=== PATIENT | male | born 1955 | race Caucasian/White ===

== ENCOUNTER → 2017-12-31 16:00 | Outpatient (CLI) | payer SELFPAY | DX: Z23 Encounter for immunization (principal) | CPT/HCPCS: 90471; 90686 ==

== ENCOUNTER → 2019-01-08 17:03 | Outpatient (CLI) | payer OTHER, SELFPAY | DX: Z23 Encounter for immunization (principal) | CPT/HCPCS: 90471; 90686 ==

== ENCOUNTER → 2019-11-10 14:30 | Outpatient (CLI) | payer OTHER, SELFPAY ==
[2019-11-10 15:23] LABS: Add Manual Diff / Slide Review NO; Basophils Absolute Auto 0 /uL (0-100); Basophils Percent Auto 0.3 % (0-2); Eosinophils Absolute Auto 100 /uL (0-450); Eosinophils Percent Auto 0.9 % (2-4); Hematocrit 36.7 % (41-53); Hemoglobin 11.9 g/dL (13.5-17.5); Lymphocytes Absolute Auto 1600 /uL (1100-4500); Mean Corpuscular HGB Conc 32.4 % (30-36); Mean Corpuscular Hemoglobin 23.5 PG (26-34); Mean Corpuscular Volume 72.3 fL (80-100); Monocytes Absolute Auto 900 /uL (0-900); Monocytes Percent Auto 9.5 % (3-14); Neutrophils Absolute Auto 6500 /uL (1500-7000); Neutrophils Percent Auto 71.3 % (50-75); Platelet Count 189 X10^3/uL (150-400); Red Blood Cell Count 5.07 X10^6/uL (4.5-5.9); Red Cell Distribution Width 17.2 % (11.6-14.8); White Blood Cell Count 9.1 X10^3/uL (4.5-11.0)
[2019-11-10 15:31] LABS: Hemoglobin A1C% w Est Avg Glu 6.1 % (4.0-6.0)
[2019-11-10 15:37] LABS: Alanine Aminotransferase 19 IU/L (<50); Albumin 4.3 g/dL (3.5-5.0); Albumin Globulin Ratio 1.5 (1.0-2.8); Alkaline Phosphatase 79 U/L (38-126); Aspartate Aminotransferase 35 IU/L (17-59); BUN Creatinine Ratio 20.8 (6-22); Bilirubin Total 0.3 mg/dL (0.2-1.3); Blood Urea Nitrogen 20 mg/dL (9-20); Calcium 9.1 mg/dL (8.4-10.2); Carbon Dioxide 29 mmol/L (22-32); Chloride 103 mmol/L (98-107); Cholesterol 169 mg/dL (140-199); Estimated Glomerular Filt Rate > 60.0 mL/min (>60); Globulin 2.8 g/dL (1.7-4.1); Glucose 97 mg/dL (80-110); HDL Cholesterol 46 mg/dL (40-60); HEMOLYSIS < 15 (0-50); LDL Cholesterol Calculated 89 mg/dL (<100); Potassium 4.3 mmol/L (3.4-5.1); Sodium 139 mmol/L (137-145); Total Protein 7.1 g/dL (6.3-8.2); Triglycerides 169 mg/dL (35-150)
[2019-11-10 16:06] LABS: Prostate Specific Antigen 0.791 ng/mL (0.10-4.00)
[2019-11-10 16:07] LABS: Thyroid Stimulating Hormone 0.623 uIU/mL (0.47-4.68)
[2019-11-10 16:24] LABS: Vitamin B12 Reflex MMA if <400 351 pg/mL (239-931)
[2019-11-13 10:08] LABS: Methylmalonic Acid,Serum 238 nmol/L (0-378)
== END ==
PROVIDERS: PCP Family Medicine; Referring Provider Family Medicine; Visit Provider Family Medicine
DX: I10 Essential (primary) hypertension (principal); N40.0 Benign prostatic hyperplasia without lower urinary tract symptoms; R12 Heartburn
CPT/HCPCS: 36415; 80053; 80061; 82607; 83036; 83921; 84153; 84443; 85025

== ENCOUNTER → 2019-11-27 10:31 | Outpatient (CLI) | payer OTHER, SELFPAY ==
--- NOTE | 2019-11-27 10:34 | DI.RAD.S_ITS ---
PROCEDURE: XR WRIST LT MIN 3V INDICATIONS: pain TECHNIQUE: 4 views of the wrist were acquired. COMPARISON: None. FINDINGS: Bones: There is an irregular, likely chronic fracture of the scaphoid. Degenerative changes are seen involving the scaphoid and the scapholunate interface, with bony fragmentation. Milder degenerative changes are seen elsewhere. Soft tissues: No suspicious soft tissue calcifications. IMPRESSION: Irregular fracture seen of the scaphoid, which is believed to be chronic. If clinically appropriate, please consider a follow-up wrist CT or MRI for further evaluation (assuming that there is no contraindication). If there is strong clinical concern for a ligamentous abnormality, this should be performed according to the MR arthrogram protocol. Dictated by: Aleksandar Marie M.D. on 11/27/2019 at 14:17 Approved by: Aleksandar Marie M.D. on 11/27/2019 at 14:18
== END ==
PROVIDERS: PCP Family Medicine; Referring Provider Family Medicine; Visit Provider Family Medicine
DX: M25.532 Pain in left wrist (principal)
CPT/HCPCS: 73110

== ENCOUNTER → 2019-12-31 13:51 | Outpatient (CLI) | payer OTHER, SELFPAY | PROVIDERS: PCP Family Medicine; Referring Provider Internal Medicine; Visit Provider Internal Medicine | DX: Z23 Encounter for immunization (principal) | CPT/HCPCS: 90471; 90662 ==

== ENCOUNTER → 2020-04-07 09:56 | Outpatient (CLI) | payer OTHER, SELFPAY ==
[2020-04-07 11:17] LABS: COVID19 -Nasal RAPID Negative (Negative)
== END ==
PROVIDERS: PCP Family Medicine; Visit Provider Surgery
DX: Z20.822 Contact with and (suspected) exposure to COVID-19 (principal); Z01.812 Encounter for preprocedural laboratory examination
CPT/HCPCS: 87635; C9803

== ENCOUNTER → 2020-04-07 10:01 | Outpatient (CLI) | payer OTHER, SELFPAY ==
[2020-04-07] MEDS: COVID-19 VACC(MODERNA-1)/PF 100 MCG/0.5 ML VIAL IM (10:08)
== END ==
PROVIDERS: PCP Family Medicine; Visit Provider Internal Medicine
DX: Z23 Encounter for immunization (principal)
CPT/HCPCS: 0011A; 91301

== ENCOUNTER 2020-04-08 08:17 | Day surgery (SDC) | payer OTHER, SELFPAY ==
--- NOTE | 2020-04-08 | PATH_ITS ---
[facility] Accession Number: [id number] . 01 Material submitted: . rectum - RECTAL POLYP BIOPSY . 02 Diagnosis: Rectum, Polyp, Biopsy: Hyperplastic polyp. MRV 04/13/2020 1307 Local . 02 Electronically signed: . Jennifer Arcos MD, Pathologist NPI- [id number] . 01 Gross description: . RECTAL POLYP BIOPSY: Received in formalin are 2 fragment(s) of dumont, soft tissue measuring 0.2 x 0.2 x 0.2 cm in aggregate submitted entirely in 1 cassette(s) /MOLLY 04/11/2020 1901 Local . 02 Pathologist provided ICD-10: K62.1 . 02 CPT . 319690 Performed at: 01 [facility] [address] [id number] MD Camden Arambula MD Phone: [phone] Performed at: 02 [facility] [place] [address] [place], [place] [id number] MD Jennifer Arcos MD Phone: [phone]
[2020-04-08] MEDS: SODIUM CHLORIDE 0.9% 1,000 ML 84 ML IV (08:32)
[2020-04-08 08:46] VITALS: BP 157/77; PULSE 58; RESP 15; TEMP 36.6; O2SAT 99; BMI 29.2
--- NOTE | 2020-04-08 09:38 | P.HP_ITS ---
History of Present Illness History of Present Illness Date Patient Seen: 04/08/20 Time Patient Seen: 09:38 [place] [facility] [place] This is a 64-year-old man with a personal history of colon polyps. His last colonoscopy was in 2013. I do not have the colonoscopy report, but per the patient polyps were found and he was told to have a repeat colonoscopy in 5 years. He denies any symptoms of melena or hematochezia. He does have some abdominal cramping from time to time for over the past 6 months. He has no unexplained weight loss. He denies constipation or diarrhea. ROS: Positive for arthritis, GERD controlled on PPI, urinary frequency/urgency, denies nausea, positive for eczema. Thirteen system review is otherwise negative other than as mentioned below and in HPI. PE: GENERAL: Well groomed and cooperative. Appears stated age. Answers questions promptly and appropriately. Vital signs noted. HENT: Normocephalic, atraumatic. Hearing intact. EYES: Conjunctiva pink, sclera white, no periorbital swelling. CARDIOVASCULAR: Regular rate. No pedal edema. RESPIRATORY: Non-tachypneic, breathing comfortably on room air. GASTROINTESTINAL: Abdomen soft and non-distended GENITALURINARY: No flank tenderness. MUSCULOSKELETAL: Equal tone and mass bilaterally. SKIN: Warm, dry, soft, appropriate color for ethnicity. No other lesions, rashes, or wounds. NEURO: Alert and Oriented X 3. No gross sensory deficits, or cognitive issues. PSYCH: Appropriate affect and mood. Patient History Medical History Acute pain of left wrist Ankle pain (~2017) BPH (benign prostatic hyperplasia) Chicken pox Colon polyps (~2011) Eczema (~2014) Finger pain, left Foot pain (~2009) Fractures Genital warts (~1973) Hearing loss (~2011) Heartburn (~1999) Hemorrhoid (~2015) History of anemia Hypertension (~2013) Measles Mumps Nail fungus (~2011) Paronychia of finger of left hand Scaphoid fracture Skin cancer (~1984) Upper extremity somatic dysfunction Wears glasses Surgical History Anesthesia H/O right knee surgery (~2004) History of broken collarbone (~1956) History of broken finger (~1972) History of colonoscopy (~2014) History of esophageal disorder (~2012) History of tonsillectomy (~1959) Family & Social History Family History Father Cancer Mother History of heart disease Hypertension Sister History of heart disease Sister Diabetes mellitus Grandmother Diabetes mellitus Social History: household members spouse Tobacco & Substance use: Smoking Status Former smoker alcohol intake current alcohol intake frequency a few times a week Substance Use Type does not use Meds Home Medications and Allergies Home Medications Medication Instructions Recorded Confirmed Type multivitamin 1 tab PO DAILY 11/10/19 04/08/20 History omeprazole 20 mg tablet,delayed 20 mg PO DAILY 11/10/19 04/08/20 History release Allergies Allergy/AdvReac Type Severity Reaction Status Date / Time shellfish derived Allergy Intermediate Rash Verified 04/08/20 08:34 mollusks AdvReac Intermediate Nausea Verified 04/08/20 08:34 Exam Vital Signs (past 8 hours): - 04/08/20 08:46 Temperature 97.8 F Pulse Rate 58 L Respiratory Rate 15 Blood Pressure 157/77 H Pulse Oximetry 99 Oxygen Delivery Method Room Air Assessment & Plan Assessment and plan (1) Personal history of colonic polyps: Status: Acute (2) Abdominal pain: Status: Acute (3) Hemorrhoid: Status: Chronic (4) Hypertension: Status: Chronic (5) History of anemia: Status: Acute Assessment & Plan narrative: 17 minutes were spent reviewing the patient's primary care records, and 8 minutes were spent [id number] with the patient discussing his medical history, prior colonoscopies, current symptoms, and exam findings. Risks and benefits of screening colonoscopy and possible polypectomy were discussed with the patient including risk of bleeding, perforation, need for additional procedures, risks of anesthesia. The patient desires to proceed with the colonoscopy procedure. COVID-19 COVID-19 status: Negative Result date/Date tested (Pos, Neg/Pending): 04/07/20 Time Spent With Patient Time with patient: 25 - 35 minutes
--- NOTE | 2020-04-08 09:43 | PM.OP.ENDO ---
Operative Date/Time/Diagnoses Date of procedure: 04/08/20 Time of procedure: 09:43 Pre-op diagnosis: Personal history of colon polyps, unexplained abdominal pain Post-op diagnosis: other (Single polyp at 15 cm, external hemorrhoid remnant tags) Procedure & Clinicians Study performed: Colonoscopy Procedural sedation performed by the endoscopist Polypectomy with number forceps at 15 cm Same procedure as scheduled: Yes Indications: Personal history of colon polyps, due for surveillance colonoscopy, unexplained abdominal pain Surgeon: Monica Carballo Procedure Notes SCOAP/Timeout: Performed Procedure in detail: The patient was brought to the room and placed in left lateral decubitus position with all bony prominences padded. A time-out was performed and then the patient was given procedural sedation starting with 4 mg of Versed and 100 mcg of fentanyl. Total of 6 mg of Versed and 100 micro g of fentanyl were given for the entire procedure. Vitals were monitored throughout the procedure and remained stable. Once adequately sedated, the procedure was begun. A rectal exam was performed revealing external hemorrhoid remnant tags, and small internal hemorrhoids. The colonoscope was then introduced to the rectum and advanced to the cecum in the usual fashion. The cecum was identified by the appendiceal orifice, the mucosal tri-fold, and the ileocecal valve. The scope was then retracted while rotating side to side and examining each mucosal fold. A 3 mm polyp was seen at 15 cm in the rectum, and it was removed with Jumbo forceps. At the conclusion of the procedure retroflexion was performed and moderate grade to internal hemorrhoids without stigmata of bleeding were seen. A skin tags from his external hemorrhoids was seen on retroflexion as well. It appeared consistent with a remote skin tag. It was not thrombosed or actively bleeding. The scope was then withdrawn from the rectum the procedure was concluded. The patient tolerated the procedure well and was transferred to the PACU in stable condition. Scope withdrawal time: 09 Sedation minutes: 22 Findings: internal hemorrhoids and polyp Specimen(s): other (Single small polyp) Complications: none Impression: Single benign appearing polyp Post-procedure Recommendations: Colonscopy in 5 years (Due to history of colon polyps, and new polyps seen on this exam) Follow up: as needed Disposition: PACU
[2020-04-08] MEDS: MIDAZOLAM 5 MG/5 ML VIAL IV (09:57)
[2020-04-08] MEDS: fentaNYL 250 MCG/5 ML INJ IV (09:59)
[2020-04-08 10:10] VITALS: BP 112/59; BP 113/59; PULSE 51; PULSE 56; RESP 12; RESP 13; TEMP 36.4; O2SAT 95
[2020-04-08 10:15] VITALS: BP 113/59; PULSE 52; RESP 12; O2SAT 95
[2020-04-08 10:25] VITALS: BP 129/65; PULSE 60; RESP 17; O2SAT 96
[2020-04-08 10:34] VITALS: BP 120/67; PULSE 59; RESP 18; TEMP 36.7; O2SAT 95
--- NOTE | 2020-04-08 10:44 | SUR.PHASEII ---
PT DISCHARGED WITH ALL BELONGINGS
== END 2020-04-08 10:44 | disposition home or self-care (01) ==
PROVIDERS: PCP Family Medicine; Referring Provider Family Medicine; Visit Provider Surgery
PROC: 0DJD8ZZ Inspection of Lower Intestinal Tract, Via Natural or Artificial Opening Endoscopic (ICD-10-PCS; CPT 45378; principal; 2020-04-08 09:15)
DX: R10.9 Unspecified abdominal pain (principal); K64.4 Residual hemorrhoidal skin tags; K64.8 Other hemorrhoids; I10 Essential (primary) hypertension; K62.1 Rectal polyp
CPT/HCPCS: 45380; 99152; J2250; J3010

== ENCOUNTER → 2020-05-06 09:45 | Outpatient (CLI) | payer OTHER, SELFPAY ==
[2020-05-06] MEDS: COVID-19 VACC #2, MRNA(MOD) 100 MCG/0.5 ML VIAL IM (09:47)
== END ==
PROVIDERS: PCP Family Medicine; Visit Provider Internal Medicine
DX: Z23 Encounter for immunization (principal)
CPT/HCPCS: 0012A; 91301

== ENCOUNTER → 2020-12-30 10:12 | Outpatient (CLI) | payer OTHER, SELFPAY ==
[2020-12-30 12:20] LABS: COVID19 -Nasal RAPID Negative (Negative)
== END ==
PROVIDERS: PCP Family Medicine; Visit Provider Physician Assistant
DX: Z20.822 Contact with and (suspected) exposure to COVID-19 (principal)
CPT/HCPCS: 87635

== ENCOUNTER → 2021-01-03 09:52 | Outpatient (CLI) | payer OTHER, SELFPAY ==
[2021-01-03 12:21] LABS: COVID19 -Nasal RAPID Negative (Negative)
== END ==
PROVIDERS: PCP Family Medicine; Visit Provider Nurse Practitioner Family
DX: Z20.822 Contact with and (suspected) exposure to COVID-19 (principal)
CPT/HCPCS: 87635

== ENCOUNTER → 2021-01-05 10:00 | Outpatient (CLI) | payer OTHER, SELFPAY | PROVIDERS: PCP Family Medicine; Referring Provider Internal Medicine; Visit Provider Internal Medicine | DX: Z23 Encounter for immunization (principal) | CPT/HCPCS: 90471; 90662 ==

== ENCOUNTER → 2021-01-09 11:41 | Outpatient (CLI) | payer OTHER, SELFPAY ==
[2021-01-09 13:33] LABS: COVID19 -Nasal RAPID Negative (Negative)
== END ==
PROVIDERS: PCP Family Medicine; Visit Provider Nurse Practitioner Family
DX: Z20.822 Contact with and (suspected) exposure to COVID-19 (principal)
CPT/HCPCS: 87635

== ENCOUNTER → 2021-06-30 07:23 | Outpatient (CLI) | payer OTHER, SELFPAY ==
[2021-06-30 07:45] LABS: Add Manual Diff / Slide Review NO; Basophils Absolute Auto 0 /uL (0-100); Basophils Percent Auto 0.6 % (0-2); Eosinophils Absolute Auto 200 /uL (0-450); Eosinophils Percent Auto 2.5 % (2-4); Hematocrit 40.6 % (41-53); Hemoglobin 13.8 g/dL (13.5-17.5); Lymphocytes Absolute Auto 1400 /uL (1100-4500); Lymphocytes Percent Auto 18.2 % (25-40); Mean Corpuscular HGB Conc 33.9 % (30-36); Mean Corpuscular Hemoglobin 28.1 PG (26-34); Monocytes Absolute Auto 700 /uL (0-900); Monocytes Percent Auto 9.2 % (3-14); Neutrophils Absolute Auto 5500 /uL (1500-7000); Neutrophils Percent Auto 69.5 % (50-75); Platelet Count 177 X10^3/uL (150-400); Red Blood Cell Count 4.89 X10^6/uL (4.5-5.9); Red Cell Distribution Width 15.3 % (11.6-14.8); White Blood Cell Count 7.9 X10^3/uL (4.5-11.0)
[2021-06-30 07:59] LABS: Alanine Aminotransferase 19 IU/L (<50); Albumin 4.2 g/dL (3.5-5.0); Albumin Globulin Ratio 1.4 (1.0-2.8); Alkaline Phosphatase 61 U/L (38-126); Aspartate Aminotransferase 27 IU/L (17-59); BUN Creatinine Ratio 11.7 (6-22); Bilirubin Total 0.6 mg/dL (0.2-1.3); Blood Urea Nitrogen 12 mg/dL (9-20); Calcium 8.7 mg/dL (8.4-10.2); Carbon Dioxide 30 mmol/L (22-32); Chloride 104 mmol/L (98-107); Cholesterol 172 mg/dL (140-199); Estimated Glomerular Filt Rate > 60.0 mL/min (>60); Globulin 2.9 g/dL (1.7-4.1); Glucose 106 mg/dL (80-110); HDL Cholesterol 43 mg/dL (40-60); HEMOLYSIS < 15 (0-50); LDL Cholesterol Calculated 99 mg/dL (<100); Potassium 4.1 mmol/L (3.4-5.1); Sodium 140 mmol/L (137-145); Total Protein 7.1 g/dL (6.3-8.2); Triglycerides 150 mg/dL (35-150)
[2021-06-30 08:29] LABS: Prostate Specific Antigen 0.705 ng/mL (0.10-4.00)
[2021-06-30 08:36] LABS: TSH w/ Reflex to FT4 0.97 uIU/mL (0.47-4.68)
== END ==
PROVIDERS: PCP Family Medicine; Referring Provider Family Medicine; Visit Provider Family Medicine
DX: I10 Essential (primary) hypertension (principal); Z00.00 Encounter for general adult medical examination without abnormal findings
CPT/HCPCS: 36415; 80053; 80061; 84153; 84443; 85025

== ENCOUNTER → 2022-01-05 16:51 | Outpatient (CLI) | payer OTHER, SELFPAY | PROVIDERS: PCP Family Medicine; Referring Provider Internal Medicine; Visit Provider Internal Medicine | DX: Z23 Encounter for immunization (principal) | CPT/HCPCS: 90471; 90662 ==

== ENCOUNTER → 2022-07-18 07:20 | Outpatient (CLI) | payer OTHER, SELFPAY ==
[2022-07-18 08:26] LABS: Alanine Aminotransferase 21 IU/L (<50); Albumin Globulin Ratio 1.4 (1.0-2.8); Alkaline Phosphatase 61 U/L (38-126); Aspartate Aminotransferase 28 IU/L (17-59); BUN Creatinine Ratio 11.5 (6-22); Bilirubin Total 0.4 mg/dL (0.2-1.3); Blood Urea Nitrogen 12 mg/dL (9-20); Calcium 8.7 mg/dL (8.4-10.2); Carbon Dioxide 29 mmol/L (22-32); Chloride 103 mmol/L (98-107); Estimated Glomerular Filt Rate > 60 mL/min (>60); Globulin 2.9 g/dL (1.7-4.1); Glucose 99 mg/dL (80-110); HEMOLYSIS < 15 (0-50); Potassium 4.4 mmol/L (3.4-5.1); Sodium 138 mmol/L (137-145); Total Protein 6.9 g/dL (6.3-8.2)
== END ==
PROVIDERS: PCP Family Medicine; Referring Provider Family Medicine; Visit Provider Family Medicine
DX: I10 Essential (primary) hypertension (principal)
CPT/HCPCS: 36415; 80053

== ENCOUNTER 2023-07-29 12:18 | Day surgery (SDC) | payer OTHER, SELFPAY ==
[2023-06-11 13:46] VITALS: BMI 29.2
[2023-07-29 12:36] VITALS: BP 153/65; PULSE 64; RESP 16; TEMP 36.2; O2SAT 97; BMI 29.2
--- NOTE | 2023-07-29 12:45 | PM.HP.1 ---
History of Present Illness History of Present Illness Date Patient Seen: 07/29/23 Time Patient Seen: 12:45 Chief complaint: Hernia Repair - Umbilical Narrative: Abdulaziz is a 67-year-old man with a symptomatic umbilical hernia. See office note from May for more details. [facility] Medical History (Updated 07/23/23 @ 14:49 by Alessandra Brandt RN) History of COVID-19 (06/13/23) Anemia Umbilical hernia GERD (gastroesophageal reflux disease) Onychomycosis Well adult exam Sensorineural hearing loss (SNHL) of both ears Scaphoid fracture Upper extremity somatic dysfunction Paronychia of finger of left hand Finger pain, left Acute pain of left wrist History of anemia BPH (benign prostatic hyperplasia) Wears glasses Nail fungus (~2011) Eczema (~2014) Fractures Foot pain (~2009) Ankle pain (~2017) Mumps Measles Chicken pox Hearing loss (~2011) Genital warts (~1973) Heartburn (~1999) Hemorrhoid (~2015) Colon polyps (~2011) Hypertension (~2013) Skin cancer (~1984) Surgical History (Updated 06/11/23 @ 13:50 by Alessandra Brandt RN) Hx of tonsillectomy (1959) Hx of hand surgery (1969) History of hernia repair (1958) History of esophageal disorder (~2012) Anesthesia History of colonoscopy (~2014) History of tonsillectomy (~1959) History of broken collarbone (~1956) History of broken finger (~1972) H/O right knee surgery (~2004) Family History Father Cancer Mother History of heart disease Hypertension Sister History of heart disease Sister Diabetes mellitus Grandmother Diabetes mellitus Social History household members: spouse Smoking Status: Former smoker Tobacco: How many years used: 10 quit status: has quit before alcohol intake: current substance use type: does not use Meds Home Medications and Allergies Home Medications Medication Instructions Recorded Confirmed Type multivitamin 1 tab PO DAILY 11/10/19 06/11/23 History lisinopril 10 mg tablet 10 mg PO BID #180 tabs 04/19/23 06/11/23 Rx methylcellulose (laxative) 500 mg 500 mg PO DAILY Regularity 04/19/23 06/11/23 History tablet (Citrucel) omeprazole 20 mg tablet,delayed 20 mg PO DAILY #90 tabs 04/19/23 06/11/23 Rx release Allergies Allergy/AdvReac Type Severity Reaction Status Date / Time shellfish derived Allergy Intermediate Rash Verified 05/08/23 12:57 mollusks AdvReac Intermediate Nausea Verified 05/08/23 12:57 Exam Const General: No acute distress Resp Effort & Inspection: normal respiratory effort GI Other: Umbilical hernia Assessment & Plan Assessment and plan (1) Umbilical hernia: Qualifiers: Obstruction and gangrene presence: without obstruction or gangrene Qualified Code(s): K42.9 - Umbilical hernia without obstruction or gangrene Status: Acute Plan We reviewed the risks and benefits of open umbilical hernia repair with mesh and he would like to proceed.
[2023-07-29] MEDS: LACTATED RINGERS 1,000 ML 42 ML IV (12:50)
[2023-07-29] MEDS: CEFAZOLIN 2 GM/100 ML PREMIX 100 ML IV (13:19)
--- NOTE | 2023-07-29 13:26 | SUR.OPER ---
Supine on padded OR bed, head on pillow, arms secured on padded arm boards at <90 degrees abduction, legs uncrossed, safety belt at thigh, tape over blanket over lower legs.
[2023-07-29] MEDS: ACETAMINOPHEN IV 1,000 MG/100 ML VIAL 400 MG IV (13:29)
[2023-07-29] MEDS: BUPIVACAINE 0.5% W/ EPI (PF) 30 ML VIAL INJ (13:31)
--- NOTE | 2023-07-29 14:19 | PM.OP.1 ---
Operative Date/Time/Diagnoses Date of procedure: 07/29/23 Time of procedure: 14:19 Pre-op diagnosis: Umbilical hernia Post-op diagnosis: same Procedure & Clinicians Procedure: Open umbilical hernia repair with mesh Same procedure as scheduled: Yes Surgeon: Mian Lomax Environmental Geologist: Bala Flowers Anesthesia Type: General Operative Notes Procedure in detail: Ancef was administered. The patient was brought to the operating room, placed on the table in the supine position and general endotracheal anesthesia was induced. The abdomen was prepped and draped in the usual fashion. A time-out was performed. A 6 cm curvilinear incision was made inferior to the umbilicus. The hernia sac was dissected free from the surrounding subcutaneous adipose tissue. The sac was dissected off the umbilical stalk using a combination of cautery, sharp and blunt dissection. The hernia sac was opened and viable bowel was seen freely mobile in the abdomen. No adhesions were noted. The peritoneal defect was then sutured closed with a running 3-0 Vicryl stitch. The hernia sac was dissected free from the fascial ring and allowed to drop back down into the abdomen. The fascia was then closed transversely with multiple interrupted 0 Ethibond sutures. The subcutaneous adipose tissue was cleared off of the anterior sheath circumferentially about 2 cm in each direction. A piece of polypropylene mesh was trimmed to fit over the fascial closure and secured with Tisseel. Once the Tisseel was dried the umbilical skin was tacked down to the deep tissue with a single 3-0 Vicryl stitch. The skin was closed with multiple interrupted 3-0 Vicryl dermal sutures followed by a running 4 Monocryl subcuticular closure. Steri-Strips were applied and an abdominal binder was applied. EBL: 5 mL Bala AGARWAL provided assistance with exposure, retraction and closure of incisions. Post-operative Condition: stable Disposition: PACU
[2023-07-29 14:24] VITALS: BP 148/62; PULSE 77; RESP 16; TEMP 36.6; O2SAT 94
[2023-07-29 14:29] VITALS: BP 145/62; PULSE 73; RESP 16; O2SAT 97
[2023-07-29 14:34] VITALS: BP 154/70; PULSE 66; RESP 14; TEMP 36.6; O2SAT 99
[2023-07-29 14:38] VITALS: BP 148/76; PULSE 66; RESP 14; O2SAT 96
== END 2023-07-29 14:57 | disposition home or self-care (01) ==
PROVIDERS: PCP Family Medicine; Referring Provider Surgery; Visit Provider Surgery
PROC: (CPT 49591; principal; 2023-07-29 13:45)
DX: K42.9 Umbilical hernia without obstruction or gangrene (principal)
CPT/HCPCS: 49591; C1781; J0136; J0690; J2704; J3010

== ENCOUNTER → 2023-10-30 07:08 | Outpatient (CLI) | payer OTHER, SELFPAY ==
[2023-10-30 07:58] LABS: Basophils Absolute Auto 100 /uL (0-100); Basophils Percent Auto 0.9 % (0-2); Eosinophils Absolute Auto 100 /uL (0-450); Hematocrit 33.6 % (41-53); Hemoglobin 10.8 g/dL (13.5-17.5); Lymphocytes Absolute Auto 1600 /uL (1100-4500); Lymphocytes Percent Auto 24.1 % (25-40); Mean Corpuscular Hemoglobin 21.9 PG (26-34); Mean Corpuscular Volume 68.5 fL (80-100); Monocytes Absolute Auto 800 /uL (0-900); Monocytes Percent Auto 11.7 % (3-14); Neutrophils Absolute Auto 4100 /uL (1500-7000); Neutrophils Percent Auto 61.3 % (50-75); Platelet Count 200 X10^3/uL (150-400); Red Blood Cell Count 4.91 X10^6/uL (4.5-5.9); Red Cell Distribution Width 17.4 % (11.6-14.8); White Blood Cell Count 6.7 X10^3/uL (4.5-11.0)
[2023-10-30 08:20] LABS: Add Manual Diff / Slide Review SLIDE REVIEW
[2023-10-30 08:34] LABS: Alanine Aminotransferase 18 IU/L (<50); Albumin 4.1 g/dL (3.5-5.0); Albumin Globulin Ratio 1.4 (1.0-2.8); Alkaline Phosphatase 64 U/L (38-126); Aspartate Aminotransferase 28 IU/L (17-59); Bilirubin Total 0.5 mg/dL (0.2-1.3); Blood Urea Nitrogen 15 mg/dL (9-20); Calcium 8.6 mg/dL (8.4-10.2); Carbon Dioxide 27 mmol/L (22-32); Chloride 106 mmol/L (98-107); Cholesterol 170 mg/dL (140-199); Estimated Glomerular Filt Rate > 60 mL/min (>60); Globulin 2.9 g/dL (1.7-4.1); Glucose 103 mg/dL (80-110); HDL Cholesterol 43 mg/dL (40-60); HEMOLYSIS < 15 (0-50); LDL Cholesterol Calculated 100 mg/dL (<100); Potassium 4.6 mmol/L (3.4-5.1); Sodium 137 mmol/L (137-145); Triglycerides 137 mg/dL (35-150)
[2023-10-30 08:56] LABS: Microcytosis 1+
== END ==
PROVIDERS: PCP Family Medicine; Referring Provider Family Medicine; Visit Provider Family Medicine
DX: I10 Essential (primary) hypertension (principal); Z86.2 Personal history of diseases of the blood and blood-forming organs and certain disorders involving the immune mechanism
CPT/HCPCS: 36415; 80053; 80061; 85025

== ENCOUNTER 2024-01-07 08:27 | Day surgery (SDC) | payer OTHER, SELFPAY ==
[2024-01-07] MEDS: ACETAMINOPHEN 325 MG TABLET 975 MG PO (08:52)
[2024-01-07 08:53] VITALS: BMI 29.0
[2024-01-07 09:09] VITALS: BP 161/80; PULSE 56; RESP 14; TEMP 36.2; O2SAT 99
[2024-01-07] MEDS: LACTATED RINGERS 1,000 ML 42 ML IV (09:10)
[2024-01-07] MEDS: CEFAZOLIN 2 GM/100 ML PREMIX 100 ML IV (09:40)
--- NOTE | 2024-01-07 09:53 | SUR.OPER ---
Supine on padded OR bed, head on pillow, arms secured on padded arm boards at <90 degrees abduction, legs uncrossed, safety belt at thigh, tape over blanket over lower legs.
[2024-01-07] MEDS: BUPIVACAINE 0.5% (PF) 30 ML, EPINEPHrine 0.15 MG INJ (10:08)
--- NOTE | 2024-01-07 11:21 | P.OP_ITS ---
Operative Date/Time/Diagnoses Date of procedure: 01/07/24 Time of procedure: 11:21 Pre-op diagnosis: Recurrent umbilical hernia Post-op diagnosis: same Procedure & Clinicians Procedure: Open recurrent umbilical hernia repair with mesh Same procedure as scheduled: Yes Surgeon: Mian Lomax Chief Ii Dispatcher: Bala Flowers Anesthesia Type: General Operative Notes Procedure in detail: Ancef was administered. The patient was brought to the operating room, placed on the table in the supine position and general endotracheal anesthesia was induced. The abdomen was prepped and draped in the usual fashion. A time-out was performed. A 6 cm curvilinear incision was made inferior to the umbilicus through the old scar. We dissected down through the old scar tissue and found the edge of the mesh. The recurrent hernia sac appeared to be coming from the left side of the wound around the edge of the mesh. Further dissection revealed that 1 of the left lateral Ethibond sutures seemed to have come untied. We continued to dissect around the mesh and around the fascial defect. The fascial defect was a proximally 2 cm across. We removed the majority of the old mesh. Some of the inferior portion of the mesh was left intact because it was quite adherent to the fascia. We resected the hernia sac. We then closed the fascia transversely with about 10 interrupted 0 Ethibond sutures. Dissected some of the subcutaneous adipose tissue and fibrotic tissue off of the anterior sheath to allow a landing zone for a new piece of mesh. A piece of polypropylene mesh was trimmed to fit over the fascial closure and secured with Tisseel. Once the Tisseel was dried the umbilical skin was tacked down to the deep adipose tissue with two 3-0 Vicryl stitches. The skin was closed with multiple interrupted 3-0 Vicryl dermal sutures followed by a running 4 Monocryl subcuticular closure. Steri-Strips were applied and an abdominal binder was applied. EBL: 10 mL Bala AGARWAL provided assistance with exposure, retraction and closure of incisions. Post-operative Disposition: PACU
--- NOTE | 2024-01-07 11:21 | PM.PREOP ---
Pre-operative Note COVID-19 COVID-19 status: Not tested Interval Note History & Physical reviewed/Exam performed by Physician: Yes Changes to H&P: No ASA Class (for procedural sedation): II
[2024-01-07 11:22] VITALS: BP 145/72; PULSE 61; RESP 18; TEMP 37.1; O2SAT 91
[2024-01-07 11:27] VITALS: BP 143/67; PULSE 54; RESP 18; O2SAT 95
[2024-01-07 11:31] VITALS: BP 145/72; PULSE 61; RESP 16; O2SAT 93
[2024-01-07 11:37] VITALS: BP 149/63; PULSE 58; RESP 13; O2SAT 93
[2024-01-07 11:40] VITALS: BP 147/64; PULSE 57; RESP 18; TEMP 36.6; O2SAT 93
== END 2024-01-07 12:10 | disposition home or self-care (01) ==
PROVIDERS: PCP Family Medicine; Referring Provider Surgery; Visit Provider Surgery
PROC: (CPT 49613; principal; 2024-01-07 09:45)
DX: K42.9 Umbilical hernia without obstruction or gangrene (principal)
CPT/HCPCS: 49613; 49623; J0171; J0330; J0690; J1100; J2405; J2704; J3010

== ENCOUNTER → 2024-01-17 | Outpatient (CLI) | payer OTHER, SELFPAY | PROVIDERS: PCP Family Medicine; Referring Provider Internal Medicine; Visit Provider Internal Medicine | DX: Z23 Encounter for immunization (principal) | CPT/HCPCS: 90471; 90662 ==

== ENCOUNTER → 2024-02-05 07:09 | Outpatient (CLI) | payer OTHER, SELFPAY ==
[2024-02-05 09:14] LABS: Add Manual Diff / Slide Review NO; Basophils Absolute Auto 0 /uL (0-100); Basophils Percent Auto 0.6 % (0-2); Eosinophils Absolute Auto 100 /uL (0-450); Hematocrit 43.6 % (41-53); Hemoglobin 14.7 g/dL (13.5-17.5); Lymphocytes Absolute Auto 1800 /uL (1100-4500); Lymphocytes Percent Auto 25.7 % (25-40); Mean Corpuscular HGB Conc 33.7 % (30-36); Mean Corpuscular Hemoglobin 28.3 PG (26-34); Mean Corpuscular Volume 84.2 fL (80-100); Monocytes Absolute Auto 700 /uL (0-900); Monocytes Percent Auto 9.9 % (3-14); Neutrophils Absolute Auto 4400 /uL (1500-7000); Neutrophils Percent Auto 61.8 % (50-75); Platelet Count 138 X10^3/uL (150-400); Red Blood Cell Count 5.18 X10^6/uL (4.5-5.9); Red Cell Distribution Width 22.9 % (11.6-14.8); White Blood Cell Count 7.1 X10^3/uL (4.5-11.0)
[2024-02-05 09:48] LABS: Anisocytosis 1+
== END ==
PROVIDERS: PCP Family Medicine; Referring Provider Family Medicine; Visit Provider Family Medicine
DX: K21.9 Gastro-esophageal reflux disease without esophagitis (principal); D50.8 Other iron deficiency anemias
CPT/HCPCS: 36415; 85025

== ENCOUNTER → 2025-02-09 07:18 | Outpatient (CLI) | payer MEDICARE, OTHER, SELFPAY ==
[2025-02-09 08:03] LABS: Add Manual Diff / Slide Review NO; Hematocrit 43.7 % (41-53); Hemoglobin 15.1 g/dL (13.5-17.5); Lymphocytes Absolute Auto 1600 /uL (1100-4500); Mean Corpuscular HGB Conc 34.5 % (30-36); Mean Corpuscular Hemoglobin 32.0 PG (26-34); Mean Corpuscular Volume 92.7 fL (80-100); Platelet Count 157 X10^3/uL (150-400)
[2025-02-09 08:30] LABS: Alanine Aminotransferase 18 IU/L (<50); Albumin 4.0 g/dL (3.5-5.0); Albumin Globulin Ratio 1.4 (1.0-2.8); Alkaline Phosphatase 63 U/L (38-126); Blood Urea Nitrogen 17 mg/dL (9-20); Calcium 8.6 mg/dL (8.4-10.2); Carbon Dioxide 29 mmol/L (22-32); Chloride 103 mmol/L (98-107); Cholesterol 165 mg/dL (140-199); Estimated Glomerular Filt Rate > 60 mL/min (>60); Globulin 2.8 g/dL (1.7-4.1); Glucose 97 mg/dL (70-99); HDL Cholesterol 50 mg/dL (40-60); HEMOLYSIS < 15 (0-50); Potassium 4.3 mmol/L (3.4-5.1); Sodium 140 mmol/L (137-145); Total Protein 6.8 g/dL (6.3-8.2); Triglycerides 171 mg/dL (35-150)
== END ==
PROVIDERS: PCP Family Medicine; Referring Provider Family Medicine; Visit Provider Family Medicine
DX: Z12.5 Encounter for screening for malignant neoplasm of prostate (principal); D50.9 Iron deficiency anemia, unspecified; I10 Essential (primary) hypertension; K64.9 Unspecified hemorrhoids; N40.0 Benign prostatic hyperplasia without lower urinary tract symptoms
CPT/HCPCS: 36415; 80053; 80061; 85025; G0103